=== PATIENT | female | born 1980 | race Caucasian/White ===

== ENCOUNTER 2022-04-27 15:17 | Emergency (ER) | payer MEDICAID ==
[~2022-04-27] VITALS: Ht 165.1 cm; Wt 49.9 kg
[2022-04-27 15:57] VITALS: BP 116/70
[2022-04-27] MEDS ORDERED: cefTRIAXone 1,000 MG in DEXT 5% MINI-BAG PLUS 50 ML IV ONE (17:25)
[2022-04-27] MEDS ORDERED: NACL 0.9% 1,000 ML IV SCH (17:25)
[2022-04-27] MEDS ORDERED: cefTRIAXone 1,000 MG VIAL ONE (17:30)
[2022-04-27 17:46] LABS: BASOPHILS % (AUTO) 0.2 % (0.0-2.0); EOSINOPHILS # (AUTO) 0.1 K/uL (0-0.4); EOSINOPHILS % (AUTO) 0.4 % (0.0-4.0); HEMATOCRIT 34.1 % (36-48); HEMOGLOBIN 11.7 g/dL (12.0-16.0); LYMPHOCYTES # (AUTO) 1.4 K/uL (2.5-16.5); LYMPHOCYTES % (AUTO) 7.5 % (20.5-51.1); MEAN CORPUSCULAR HEMOGLOBIN 30 pg (27-31); MEAN CORPUSCULAR HGB CONC 34 g/dL (33-37); MEAN CORPUSCULAR VOLUME 86.5 fL (80-94); MONOCYTES # (AUTO) 0.6 K/uL (0.8-1.0); MONOCYTES % (AUTO) 3.2 % (1.7-9.3); NEUTROPHILS # (AUTO) 16.3 K/uL (1.8-7.7); NEUTROPHILS % (AUTO) 88.7 % (42.2-75.2); PLATELET COUNT (AUTO) 476 K/uL (140-450); RED BLOOD CELL COUNT(AUTO) 3.94 MIL/uL (4.20-5.40); RED CELL DISTRIBUTION WIDTH 13.6 % (11.6-13.7); WHITE BLOOD COUNT (AUTO) 18.4 K/uL (4.8-10.8)
[2022-04-27 18:05] LABS: ALBUMIN 3.3 g/dL (3.4-5.0); ANION GAP 12.2 (8-16); CARBON DIOXIDE 26.5 mmol/L (21-32); CREATININE 0.8 mg/dL (0.6-1.3); POTASSIUM 3.7 mmol/L (3.5-5.1); TOTAL BILIRUBIN 0.2 mg/dL (0.0-1.0)
[2022-04-27] MEDS ORDERED: MORPHINE SULFATE 4 MG/ML SYR IVP ONE ×2 (18:10→20:10)
--- NOTE | 2022-04-27 18:29 | NUR ---
42 y/o female bib self, homeless, pt has open wound on right hand for 3 days, pt states she was previously seen at [facility], states she was given keflex. pt states hand was not cleaned during visit. pt denies sob, chills, fever, cp, cough, n/v/d. pt a&ox4, ambulates with steady gait. upon assessment, pt has open wound on right hand with edema, redness and some yellow drainage, area is very tender to touch, describes pain as a sharp constant 10/10. pmh: illicit drug use nka med: keflex, naproxen (no relief)
--- NOTE | 2022-04-27 19:01 | NUR ---
pt ambulated to the bathroom at this time
--- NOTE | 2022-04-27 19:37 | NUR ---
Pt report given to Aleksandra RN. Transfer of care at this time.
--- NOTE | 2022-04-27 20:06 | NUR ---
pt complaining of pain 06/04 "feels like shards of glass going down my arm."
[2022-04-27 20:34] VITALS: BP 112/74
--- NOTE | 2022-04-27 20:44 | NUR ---
PATIENT UNABLE TO FIND IN THE [facility]. PER PT NEIGHBOR INFORMED THAT PT LEFT ABOUT 15 MINS AGO. PATIENT ELOPED FROM FACILITY. DISCHARGE INSTRUCTIONS NOT GIVEN TO PATIENT. DR. PALM NOTIFIED. Addendum: 04/27/22 at 2048 by [email or web address] PT CURRENTLY STILL HAS IV. WILL CALL [facility].
--- NOTE | 2022-04-27 20:50 | NUR ---
20:45 [address] [facility] ABOUT PT ELOPING AND IV STILL IN PLACE. PER PD WILL GO SEARCH FOR PATIENT.
== END 2022-04-27 20:44 | disposition left against medical advice (07) ==
LOC: MED 15:17 → EDUNIT# 15:17 → MED 20:44
DX: L03.113 Cellulitis of right upper limb (principal); Z20.822 Contact with and (suspected) exposure to COVID-19; F17.200 Nicotine dependence, unspecified, uncomplicated; F14.90 Cocaine use, unspecified, uncomplicated; F15.90 Other stimulant use, unspecified, uncomplicated; F12.90 Cannabis use, unspecified, uncomplicated
CPT/HCPCS: 36415; 71045; 73130; 80053; 83605; 85025; 87040; 87426; 93005; 96365; 96375; 99285; J0696; J2270; Q0092; J7030